=== PATIENT | female | born 1970 ===

== ENCOUNTER 2017-07-23 07:52 | Day surgery (SDC) | payer MEDICAID ==
[2017-07-16 11:59] VITALS: BMI 30.2
[2017-07-23] MEDS ORDERED: Propofol 10 mg/ml Inj (20 ML) ONE ×2 (10:03→10:11)
[2017-07-23] MEDS ORDERED: Sodium Chloride 0.9% 1,000 ML IV SCH (10:30)
[2017-07-23 11:01] VITALS: BP 122/87; PULSE 74; RESP 17; TEMP 98.2; O2SAT 100
== END 2017-07-23 11:42 | disposition home or self-care (01) ==
LOC: ENDO 07:52
PROVIDERS: ATTEND Internal Medicine
DX: K29.70 Gastritis, unspecified, without bleeding (principal); K21.9 Gastro-esophageal reflux disease without esophagitis
CPT/HCPCS: 43239; 84703; 88305; 88342; J2704; J7040 ×2

== ENCOUNTER 2018-09-17 18:07 | Emergency (ER) | payer OTHER, MEDICAID ==
[2018-09-17 18:07] VITALS: BMI 30.2
[2018-09-17] MEDS ORDERED: Naproxen 550 mg Tab PO STA (18:57)
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
[2018-09-17 19:20] VITALS: BP 119/80; PULSE 76; RESP 18; TEMP 98.7
[2018-09-17 21:46] VITALS: O2SAT 98
--- NOTE | 2018-09-18 08:51 | RAD ---
Date of service: 09/17/2018 PROCEDURE: Left Foot Radiographs. HISTORY: pain, trauma to toes COMPARISON: None. FINDINGS: BONES: No acute fracture or destructive bony lesion identified. JOINTS: No subluxation or dislocation throughout. SOFT TISSUES: Normal. OTHER FINDINGS: None. IMPRESSION: Unremarkable left foot radiographs.
== END 2018-09-17 21:46 | disposition home or self-care (01) ==
LOC: ED 18:07
DX: S90.122A Contusion of left lesser toe(s) without damage to nail, initial encounter (principal); V03.90XA Pedestrian on foot injured in collision with car, pick-up truck or van, unspecified whether traffic or nontraffic accident, initial encounter; Y92.410 Unspecified street and highway as the place of occurrence of the external cause

== ENCOUNTER 2018-10-28 08:41 | Outpatient (CLI) | payer MEDICAID | END 2018-10-28 08:42 | disposition home or self-care (01) | LOC: RAD 08:41 ==